=== PATIENT | female | born 1995 ===

== ENCOUNTER 2024-06-22 12:59 | Outpatient (CLI) | payer OTHER | END 2024-06-22 13:00 | disposition home or self-care (01) | LOC: CSHULT 12:59 | PROVIDERS: ATTEND Advanced Practice Midwife | DX: Z34.92 Encounter for supervision of normal pregnancy, unspecified, second trimester (principal); Z3A.22 22 weeks gestation of pregnancy | CPT/HCPCS: 76805 ==

== ENCOUNTER 2024-09-21 12:54 | Day surgery (SDC) | payer OTHER ==
[2024-09-21] MEDS ORDERED: hydrALAZINE 20 MG/ML VIAL SLOW IVP PRN (13:51)
[2024-09-21] MEDS ORDERED: Lactated Ringer's 1,000 ML IV SCH (14:15)
[2024-09-21 14:22] LABS: Bilirubin Neg (Negative); Blood, Urine Negative (Negative); Clarity Clear (Clear); Glucose, Urine (Dipstick) Normal (Negative); Ketone, Urine Negative (Negative); Leukocyte Negative (Negative); Nitrite Negative (Negative); Protein, Urine (Dipstick) Negative (Neg-Trace); Urobilinogen Normal mg/dL (Less than 2)
[2024-09-21 14:28] LABS: #Basophils 0.07 10x3/uL (0.0-0.2); #Eosinophils 0.71 10x3/uL (0.0-0.5); #Monocytes 0.79 10x3/uL (0.0-1.1); #Neutrophils 5.14 10x3/uL (1.5-8.4); %Basophils 0.7 % (0.0-2.0); %Eosinophils 7.5 % (0.0-6.0); %Lymphocytes 27.5 % (18.0-47.0); %Monocytes 8.3 % (0.0-10.0); Hematocrit 39.4 % (34.9-44.5); Hemoglobin 13.4 g/dL (12.0-15.5); Mean Corpuscular Hemoglobin 30.9 pg (27.0-33.0); Mean Corpuscular Volume 90.8 fL (81.6-98.3); Mean Platelet Volume 9.3 fL (7.4-10.4); Platelet Count 174 10x3/uL (150-450); RBC Distribution Width 13.2 % (11.5-14.5); Red Blood Cell (RBC) Count 4.34 10x6/uL (3.90-5.03); White Blood Cell (WBC) Count 9.5 10x3/uL (3.5-10.5)
[2024-09-21 14:30] LABS: Bacteria/HPF 1+ HPF (None Seen); CAUTI Indications for Culture Pregnancy; RBC/HPF None Seen HPF (0-3); Squamous Epithelial Greater than 50 HPF (0-3); WBC/HPF 0-3 HPF (0-3)
[2024-09-21 14:32] LABS: Urine Culture Reflex Yes Yes
[2024-09-21 14:48] LABS: ALT (SGPT) 16 U/L (8-55); AST (SGOT) 20 U/L (5-34); Albumin 2.8 g/dL (3.5-5.0); Alkaline Phosphatase 175 U/L (40-110); Anion Gap 14 mmol/L (10-20); BUN (Urea Nitrogen) 5 mg/dL (7.0-18.7); Bilirubin, Total 0.3 mg/dL (0.2-1.2); Calc. Creatinine Clearance 0 mL/min (70-130); Calcium 9.6 mg/dL (7.8-10.44); Carbon Dioxide 19 mmol/L (22-29); Chloride 108 mmol/L (98-107); Estimated GFR 128; Globulin 3.4 g/dL (2.4-3.5); Glucose 77 mg/dL (70-105); Potassium 3.9 mmol/L (3.5-5.1); Protein, Total 6.2 g/dL (6.0-8.3); Sodium 137 mmol/L (136-145)
[2024-09-21 16:14] VITALS: BMI 24.7
[2024-09-21] MEDS ORDERED: Dextrose 5%-Lactated Ringers 1,000 ML IV SCH (17:45)
== END 2024-09-21 18:09 | disposition home or self-care (01) ==
LOC: CSHLD/OP 12:54
PROVIDERS: ATTEND Family Medicine
DX: O47.03 False labor before 37 completed weeks of gestation, third trimester (principal); Z3A.36 36 weeks gestation of pregnancy; Z87.59 Personal history of other complications of pregnancy, childbirth and the puerperium; Z79.899 Other long term (current) drug therapy
CPT/HCPCS: 51702; 76819; 80053; 81001; 85025; 87086; 96360; 99283

== ENCOUNTER 2024-10-12 09:10 | Inpatient (IN) | payer MEDICAID, OTHER ==
[2024-10-12 10:32] LABS: Hematocrit 40.4 % (34.9-44.5); Hemoglobin 13.7 g/dL (12.0-15.5); Platelet Count 186 10x3/uL (150-450)
[2024-10-12 11:10] LABS: HBsAg Index 0.17 S/CO (0-0.99); HIV (1/2) Antibody/Antigen Non-Reactive (NonReactive); HIV 1/2 INDEX 0.11 S/CO (<1.00); Hep B Surf Ag Non-Reactive S/CO (NonReactive)
[2024-10-12 11:11] LABS: Syphilis Antibody Nonreactive (Nonreactive); Syphilis Antibody Index 0.08 S/CO (<1.00 Non-Reactive)
[2024-10-15 05:40] VITALS: BMI 27.4
[2024-10-15] MEDS ORDERED: Tranexamic Acid 1,000 MG/10 ML VIAL IVP PRN (07:05)
[2024-10-15] MEDS ORDERED: Misoprostol 200 MCG TAB PR PRN (07:05)
[2024-10-15] MEDS ORDERED: hydrALAZINE 20 MG/ML VIAL SLOW IVP PRN ×2 (07:05→10:42)
[2024-10-15] MEDS ORDERED: Bicitra 30 ML UDCUP PO PRN (07:05)
[2024-10-15] MEDS ORDERED: Diphenoxylate HCl/Atropine Tablet PO PRN (07:05)
[2024-10-15] MEDS ORDERED: Famotidine/PF 20 mg/2ml Vial SLOW IVP PRN (07:05)
[2024-10-15] MEDS ORDERED: Promethazine HCl 25 MG/ML VIAL IM PRN ×3 (07:05→10:42)
[2024-10-15] MEDS ORDERED: Carboprost 250 MCG/ML AMP IM PRN (07:05)
[2024-10-15] MEDS ORDERED: Ondansetron PF 4 MG/2 ML Vial IVP PRN ×4 (07:05→10:42)
[2024-10-15] MEDS ORDERED: Methylergonovine 0.2 MG/ML VIAL IM PRN (07:05)
[2024-10-15] MEDS ORDERED: Oxytocin 30 units/NS 500 ML 500 ML IV SCH (07:15)
[2024-10-15] MEDS ORDERED: Lactated Ringer's 1,000 ML IV SCH (07:15)
[2024-10-15] MEDS ORDERED: CEFAZOLIN 2 GM in Sodium Chloride 0.9% 100 ML IVPB SCH (07:15)
[2024-10-15] MEDS: CEFAZOLIN 2 GM VIAL ONE (07:16)
[2024-10-15] MEDS ORDERED: diphenhydrAMINE 50 MG/ML VIAL IVP PRN (08:07)
[2024-10-15] MEDS ORDERED: fentaNYL 50 mcg/mL 1 mL Vial SLOW IVP PRN (08:07)
[2024-10-15] MEDS ORDERED: Meperidine HCl/PF 25 MG (1 mL) VIAL SLOW IVP PRN (08:07)
[2024-10-15] MEDS ORDERED: Naloxone HCl 0.4 mg/ml Vial IVP PRN ×2 (08:07)
[2024-10-15] MEDS ORDERED: Naloxone HCl 0.4 mg/ml Vial IV PRN (08:07)
[2024-10-15] MEDS ORDERED: Moisturizing Cream (Eucerin) 113 GM JAR TOP PRN (08:07)
[2024-10-15] MEDS ORDERED: Communication Order-Pharmacy FS SCH (08:15)
[2024-10-15] MEDS ORDERED: Lanolin Ointment 7 GM TUBE TOP PRN (10:42)
[2024-10-15] MEDS ORDERED: Boostrix 0.5 ML (Tdap) VIAL (>/=7 yrs of age) IM ONE (10:42)
[2024-10-15] MEDS ORDERED: Bisacodyl 10 MG SUPP PR PRN (10:42)
[2024-10-15] MEDS ORDERED: diphenhydrAMINE 25 MG CAP PO PRN (10:42)
[2024-10-15] MEDS: Dexmedetomidine 200 MCG/2 ML VIAL ONE (11:10)
[2024-10-15] MEDS: Morphine PF 10 MG/10 ML VIAL ONE (11:10)
[2024-10-15] MEDS: Erythromycin Base 0.5% Oint 1 GM TUBE ONE (11:11)
[2024-10-15] MEDS: Phenylephrine 40 MG/NS 250 ML 250 ML ONE (11:11)
[2024-10-15] MEDS: Sterile Water 10 ML ONE (11:11)
[2024-10-15] MEDS: Phytonadione Neonatal 1 MG/0.5 ML AMP ONE (11:11)
[2024-10-15] MEDS: Docusate 100 MG CAP PO SCH ×2 (11:11→20:10)
[2024-10-15] MEDS: Ferrous Sulfate 325 MG TAB PO SCH ×2 (11:11→20:10)
[2024-10-15] MEDS: Oxytocin 10 UNITS/ML VIAL ONE (11:11)
[2024-10-15] MEDS: Prenatal Vitamin 1 TAB PO SCH (11:12)
[2024-10-15] MEDS: Ketorolac Tromethamine 30 MG (1 mL) VIAL IVP SCH (14:12)
[2024-10-15] MEDS: Simethicone Chewable 80 MG TAB PO PRN (20:11)
[2024-10-15] MEDS ORDERED: Meperidine HCl/PF 25 MG (1 mL) VIAL IM PRN (20:15)
[2024-10-16] MEDS: HYDROcodone/Acetaminophen 5/325 mg Tablet PO PRN ×2 (02:44→08:03)
[2024-10-16 05:37] LABS: Hematocrit 27.6 % (34.9-44.5); Hemoglobin 9.9 g/dL (12.0-15.5); Mean Corpuscular HGB CONC 35.9 g/dL (32.0-36.0); Mean Corpuscular Hemoglobin 32.2 pg (27.0-33.0); Mean Corpuscular Volume 89.9 fL (81.6-98.3); Platelet Count 141 10x3/uL (150-450); RBC Distribution Width 12.7 % (11.5-14.5); Red Blood Cell (RBC) Count 3.07 10x6/uL (3.90-5.03); White Blood Cell (WBC) Count 12.62 10x3/uL (3.5-10.5)
[2024-10-16] MEDS: Prenatal Vitamin 1 TAB PO SCH (08:02)
[2024-10-16] MEDS: Ibuprofen 800 MG TAB PO SCH (13:22)
[2024-10-18 07:28] VITALS: BP 106/56; TEMP 98.1
== END 2024-10-18 16:00 | disposition home or self-care (01) | DRG 788 ==
LOC: CSHLAB 09:10 → CSHLD 10-15 05:21 → CSHPED 10-15 10:20
PROVIDERS: ADMIT Family Medicine; ATTEND Family Medicine
PROC: 10D00Z1 Extraction of Products of Conception, Low, Open Approach (ICD-10-PCS; principal; 2024-10-15)
DX: O34.211 Maternal care for low transverse scar from previous cesarean delivery (principal); Z3A.39 39 weeks gestation of pregnancy; Z37.0 Single live birth
CPT/HCPCS: 36415; 51702; 85014; 85018; 85027; 85049; 86780; 86850; 86900; 86901; 87340; 87389; J1885; J2274; J2590